=== PATIENT | female | born 1970 | race Caucasian/White ===

== ENCOUNTER → 2018-08-05 14:16 | Outpatient (CLI) | payer OTHER, SELFPAY ==
--- NOTE | 2018-08-05 14:25 | RAD_ITS ---
STUDY: X-RAY CHEST REASON FOR EXAM: Female, 47 years old. Rheumatoid arthritis; long-term drug therapy TECHNIQUE: PA and lateral views of the chest. # of Images: 2 COMPARISON: None. FINDINGS: The lungs are clear and expanded. There is no demonstrated pleural abnormality. Normal size heart. Normal mediastinum and ranulfo. Normal visualized pulmonary arteries. Normal visualized aortic arch and descending thoracic aorta. Normal visualized thoracic spine. Normal visualized ribs, clavicles, and shoulders. There is no demonstrated abnormality of the visualized soft tissue structures of the upper abdomen. RAD/Chest PA and Lateral IMPRESSION: Normal x-ray examination of the chest. Electronically Signed: Sidney Jc DO at 12:10 EDT Tel , Service support ,
== END ==
PROVIDERS: Referring Provider Internal Medicine Rheumatology; Visit Provider Internal Medicine Rheumatology
DX: M06.09 Rheumatoid arthritis without rheumatoid factor, multiple sites (principal); Z79.899 Other long term (current) drug therapy; R76.8 Other specified abnormal immunological findings in serum; M79.7 Fibromyalgia
CPT/HCPCS: 36415; 71046; 86480

== ENCOUNTER → 2022-11-26 | Outpatient (CLI) | payer OTHER, SELFPAY ==
[2022-11-26 13:30] LABS: Protein, Urine (Random) 62.7 mg/dL (<11.9); Protein:Creat Ratio 764 mg/g CRE (0-200)
[2022-11-26 13:32] LABS: Erythrocyte Sedimentation Rate 40 mm/hr (0-30)
[2022-11-26 13:39] LABS: ALB/GLOB Ratio 0.7 RATIO (0.9-2.4); AST(SGOT) 14 U/L (15-37); Alanine Aminotransfer ALT/SGPT 22 U/L (13-56); Albumin, Serum 2.6 g/dL (3.2-5.0); Alkaline Phosphatase 71 U/L (45-117); Anion Gap 8 (5-15); BUN 13 mg/dL (7-18); BUN/Creat Ratio 16.4 RATIO (10-20); Calcium,Total 8.8 mg/dL (8.5-10.1); Chloride 104 mmol/L (98-107); Creatinine, Serum 0.79 mg/dL (0.55-1.02); EST Glomerular Filtration Rate 81 mL/min (>60); Est Glom Filt Rate - Afr Amer 98 mL/min (>60); Globulin 3.8 g/dL (2.2-4.2); Glucose 95 mg/dL (74-106); Potassium 3.8 mmol/L (3.5-5.1); Protein, Total 6.4 g/dL (6.4-8.2); Rheumatoid Factor < 10.0 IU/mL (<15); Sodium Level 139 mmol/L (136-145)
[2022-11-27 20:05] LABS: ANTINUCLEAR ANTIBODIES DIRECT Negative (Negative); Anti-dsDNA Ab <1 IU/mL (0-9)
[2022-11-27 20:15] LABS: Complement C3 182 mg/dL (82-167)
== END | disposition home or self-care (01) ==
LOC: POLAB3 11:07
PROVIDERS: Visit Provider Internal Medicine Nephrology
DX: R80.9 Proteinuria, unspecified (principal); M32.9 Systemic lupus erythematosus, unspecified; N03.9 Chronic nephritic syndrome with unspecified morphologic changes
CPT/HCPCS: 36415; 80053; 82570; 84156; 85652; 86038; 86160; 86225; 86431